=== PATIENT | male | born 1960 | race Caucasian/White ===

== ENCOUNTER 2020-07-23 02:38 | Emergency (ER) | payer MEDICAID ==
[~2020-07-23] VITALS: Ht 170.2 cm; Wt 79.0 kg
[~2020-07-23 02:38] MED LIST: NAPR220T77 PO
--- NOTE | 2020-07-23 03:20 | NUR ---
assessment made. chart up for MD to see. c/o diffused abdominal pain. denies vomiting.
--- NOTE | 2020-07-23 03:38 | NUR ---
ERP at bedside.
[2020-07-23] MEDS ORDERED: MAALOX/HYOSCYAMINE/LIDOCAINE 45 ML BTL ONE (03:52)
[2020-07-23] MEDS ORDERED: MAALOX/HYOSCYAMINE/LIDOCAINE 45 ML BTL PO ONE (04:00)
[2020-07-23 04:09] LABS: BASOPHILS % (AUTO) 1 % (0-1); EOSINOPHILS % (AUTO) 1 % (1-7); LYMPHOCYTES % (AUTO) 28 % (22-44); MEAN CORPUSCULAR HEMOGLOBIN 28.9 pg (27.5-34.5); MEAN PLATELET VOLUME 7.4 fL (7.4-10.4); MONOCYTES % (AUTO) 10 % (2-9); NEUTROPHILS % (AUTO) 61 % (42-75); PLATELET COUNT 386 x10^3/uL (130-400); RED BLOOD COUNT 5.33 x10^6/uL (4.38-5.82); RED CELL DISTRIBUTION WIDTH 13.4 % (9.4-14.8)
--- NOTE | 2020-07-23 04:09 | NUR ---
blood drawn by manufacturing laborer. medicated.
[2020-07-23 04:10] LABS: MD NO
[2020-07-23 04:18] LABS: ALANINE AMINOTRANSFERASE 76 U/L (12-78); ALBUMIN 3.7 g/dL (3.4-5.0); ANION GAP 8 mmol/L (5-15); CALCIUM 9.1 mg/dL (8.5-10.1); CHLORIDE 106 mmol/L (98-107); CREATININE 0.75 mg/dL (0.7-1.3)
[2020-07-23 04:20] LABS: ALKALINE PHOSPHATASE 40 U/L (45-117); BILIRUBIN,TOTAL 0.5 mg/dL (0.2-1.0); TOTAL PROTEIN 8.1 g/dL (6.4-8.2)
--- NOTE | 2020-07-23 04:34 | NUR ---
ERP at bedside for re-evaluation.
--- NOTE | 2020-07-23 04:40 | NUR ---
patient discharged with prescriptions and instrution. verbalized understanding.
[2020-07-23 04:43] VITALS: BP 118/85
== END 2020-07-23 04:45 | disposition home or self-care (01) ==
LOC: ED 04:15
DX: K29.00 Acute gastritis without bleeding (principal); F17.290 Nicotine dependence, other tobacco product, uncomplicated; Z87.11 Personal history of peptic ulcer disease
CPT/HCPCS: 36415; 80053; 83690; 85025; 99283; 99406